=== PATIENT | female | born 1950 | race African-American/Black ===

== ENCOUNTER 2021-01-08 16:29 | Emergency (ER) | payer MEDICARE, MEDICAID ==
[~2021-01-08] VITALS: Ht 165.1 cm; Wt 55.0 kg
[2021-01-08] MEDS ORDERED: TETRACAINE 0.5% OPHTH DROPS 4ML RIGHTEYE ONE (18:00)
[2021-01-08] MEDS ORDERED: FLUORESCEIN SODIUM 1MG/STRIP RIGHTEYE ONE (18:00)
[2021-01-08] MEDS ORDERED: TETRACAINE 0.5% OPHTH DROPS 4ML RIGHTEYE NR (20:45)
[2021-01-08] MEDS ORDERED: ACETAMINOPHEN 325MG TABLET PO ONE (21:00)
[2021-01-08] MEDS ORDERED: TOPUD PO (21:12)
[2021-01-08 21:30] VITALS: BP 131/76
== END 2021-01-08 21:46 | disposition home or self-care (01) ==
LOC: ER 16:29
DX: M79.18 Myalgia, other site (principal); R51.9 Headache, unspecified; M79.669 Pain in unspecified lower leg; I12.9 Hypertensive chronic kidney disease with stage 1 through stage 4 chronic kidney disease, or unspecified chronic kidney disease; N18.9 Chronic kidney disease, unspecified; Z88.0 Allergy status to penicillin; Z88.3 Allergy status to other anti-infective agents; V89.2XXA Person injured in unspecified motor-vehicle accident, traffic, initial encounter; Y93.89 Activity, other specified; Y92.410 Unspecified street and highway as the place of occurrence of the external cause
CPT/HCPCS: 70486; 99285